=== PATIENT | female | born 1935 | race African-American/Black ===

== ENCOUNTER → 2016-04-21 | Outpatient (CLI) | payer MEDICARE, OTHER | LOC: OD 16:56 | PROVIDERS: ATTEND Internal Medicine | DX: J01.90 Acute sinusitis, unspecified (principal); R05 Cough; I48.0 Paroxysmal atrial fibrillation | CPT/HCPCS: 70220; 71020 ==

== ENCOUNTER 2016-06-29 00:54 | Inpatient (IN) | payer MEDICARE, OTHER ==
[2016-06-29 01:53] LABS: ABSOLUTE EOSINOPHILS # (AUTO) 0.1 10^3/uL (0.0-0.6); ABSOLUTE LYMPHOCYTES (AUTO) 0.8 10^3/uL (0.5-4.7); ABSOLUTE MONOCYTES (AUTO) 0.5 10^3/uL (0.1-1.4); ABSOLUTE NEUT (AUTO) 4.6 10^3/uL (1.7-8.2); BASOPHILS % (AUTO) 0.6 % (0-2); EOSINOPHILS % (AUTO) 1.3 % (0-6); HEMATOCRIT 38.9 % (36.0-47.0); HEMOGLOBIN 12.3 g/dL (12.0-15.5); LYMPHOCYTES % (AUTO) 13.9 % (13-45); MEAN CORPUSCULAR HEMOGLOBIN 23.9 pg (27.0-33.4); MEAN CORPUSCULAR HGB CONC 31.5 g/dL (32.0-36.0); MEAN CORPUSCULAR VOLUME 76 fl (80-97); MONOCYTES % (AUTO) 8.7 % (3-13); RED BLOOD COUNT 5.13 10^6/uL (3.72-5.28); RED CELL DISTRIBUTION WIDTH 15.4 % (11.5-14.0); SEGMENTED NEUTROPHILS % (AUTO) 75.5 % (42-78); WHITE BLOOD COUNT 6.1 10^3/uL (4.0-10.5)
[2016-06-29] MEDS ORDERED: NORMAL SALINE 1000 ML 1,000 ML IV ONE (01:55)
--- NOTE | 2016-06-29 01:56 | ER Document Report ---
ED Fever - General Chief Complaint: Altered Mental Status Stated Complaint: ALTERED MENTAL STATUS Notes: The patient is an 80-year-old female, past medical history hypertension, hyperlipidemia, a fib, presents with 2 days of disorientation and confusion, according to her daughters. The patient also had a fever up to 102 by EMS and was given 975 mg Tylenol prior to arrival. The patient is AAOx3 and denies chest pain, shortness of breath, nausea, vomiting, abdominal pain, burning with urination, flank pain, rash, diarrhea, rhinorrhea, headache, numbness, tingling , neck stiffness or weakness. TRAVEL OUTSIDE OF THE [place] IN LAST 30 DAYS: No - Related Data Allergies/Adverse Reactions: Penicillins Allergy (Verified 01/02/14 21:38) vancomycin [Vancomycin] Allergy (Verified 01/02/14 21:38) Past Medical History - General Information source: Patient - Social History Smoking Status: Unknown if Ever Smoked Frequency of alcohol use: None Drug Abuse: None Family History: Reviewed & Not Pertinent - Past Medical History Cardiac Medical History: Reports: Hx Congestive Heart Failure, Hx Hypertension Past Surgical History: Reports: Hx Orthopedic Surgery - Immunizations Immunizations up to date: Yes Hx Diphtheria, Pertussis, Tetanus Vaccination: Yes Hx Pneumococcal Vaccination: 03/07/09 Review of Systems - Review of Systems Notes: REVIEW OF SYSTEMS: CONSTITUTIONAL: +fevers, -chills EENT: -eye pain, -difficulty swallowing, -nasal congestion CARDIOVASCULAR:-chest pain, -syncope. RESPIRATORY: -cough, -SOB GASTROINTESTINAL: -abdominal pain, -nausea, -vomiting, -diarrhea GENITOURINARY: -dysuria, -hematuria MUSCULOSKELETAL: -back pain, -neck pain SKIN: -rash or skin lesions. HEMATOLOGIC: -easy bruising or bleeding. LYMPHATIC: -swollen, enlarged glands. NEUROLOGICAL: +altered mental status, -headache, -neurologic symptoms PSYCHIATRIC: -anxiety, -depression. ALL OTHER SYSTEMS REVIEWED AND NEGATIVE. Physical Exam - Vital signs Vitals: Temp 100.3 F 06/29/16 01:01 - Notes Notes: PHYSICAL EXAMINATION: GENERAL: Well-appearing, well-nourished and in no acute distress. HEAD: Atraumatic, normocephalic. EYES: Pupils equal round and reactive to light, extraocular movements intact, sclera anicteric, conjunctiva are normal. ENT: nares patent, oropharynx clear without exudates. Moist mucous membranes. NECK: Normal range of motion, supple without lymphadenopathy LUNGS: Breath sounds clear to auscultation bilaterally and equal. No wheezes rales or rhonchi. HEART: Irregular rhythm, normal rate ABDOMEN: Soft, nontender, normoactive bowel sounds. No guarding, no rebound. No masses appreciated. EXTREMITIES: Normal range of motion, no pitting or edema. No cyanosis. NEUROLOGICAL: Cranial nerves grossly intact. Normal speech. Normal sensory and motor exams. PSYCH: Normal mood, normal affect. SKIN: Warm, Dry, normal turgor, no rashes or lesions noted. Course - Re-evaluation Re-evalutation: Patient is AAO3 and is in no distress. Her labs, CXR and urine are unremarkable. Patient has absolutely no signs of bacterial meningitis. Patient 's daughter is a family physician and does not feel comfortable taking patient home due to the confusion and fever. With the disorientation and slight hypotension, we'll bring patient in for further evaluation and treatment. She appears dehydrated and will provide gentle fluid hydration. Spoke to Dr. Traore at 5:30 and he has accepted patient to telemetry observation. - Vital Signs Vital signs: Temp Pulse Resp BP Pulse Ox 100.3 F 16 101/58 L 96 06/29/16 01:37 06/29/16 03:31 06/29/16 03:31 06/29/16 03:31 - Laboratory Result Diagrams: 06/29/16 01:30 06/29/16 01:30 Laboratory results interpreted by me: 06/29/16 06/29/16 06/29/16 01:30 01:30 01:30 MCV 76 L MCH 23.9 L MCHC 31.5 L RDW 15.4 H Potassium 5.1 H BUN 29 H Creatinine 1.77 H Est GFR ( Amer) 33 L Est GFR (Non-Af Amer) 28 L Glucose 138 H AST 74 H ALT 87 H NT-Pro-B Natriuret Pep 3750 H Urine Ketones 06/29/16 03:44 MCV MCH MCHC RDW Potassium BUN Creatinine Est GFR ( Amer) Est GFR (Non-Af Amer) Glucose AST ALT NT-Pro-B Natriuret Pep Urine Ketones TRACE H - Diagnostic Test Radiology reviewed: Image reviewed, Reports reviewed Radiology results interpreted by me: CXR: NAD - EKG Interpretation by Me EKG shows normal: [place], Intervals, QRS Complexes, ST-T Waves Rate: Normal Rhythm: A.Fib Discharge - Discharge Clinical Impression: Dehydration Altered mental status Qualifiers: Altered mental status type: disorientation Qualified Code(s): R41.0 - Disorientation, unspecified Fever Qualifiers: Fever type: unspecified Qualified Code(s): R50.9 - Fever, unspecified Condition: Stable Disposition: ADMITTED OBSERVATION Admitting Provider: Madeline Unit Admitted: Telemetry Referrals: JULIAN TRAORE MD [Primary Care Provider] - Follow up as needed
[2016-06-29 02:08] LABS: ALANINE AMINOTRANSFERASE 87 U/L (9-52); ALBUMIN 3.8 g/dL (3.5-5.0); ALKALINE PHOSPHATASE 110 U/L (38-126); ANION GAP 14 (5-19); ASPARTATE AMINO TRANSFERASE 74 U/L (14-36); BILIRUBIN,DIRECT 0.4 mg/dL (0.0-0.4); BILIRUBIN,TOTAL 0.6 mg/dL (0.2-1.3); BLOOD UREA NITROGEN 29 mg/dL (7-20); CALCIUM 9.8 mg/dL (8.4-10.2); CARBON DIOXIDE 24 mmol/L (22-30); CHLORIDE 104 mmol/L (98-107); CREATINE KINASE 63 U/L (30-135); CREATININE RESULT 1.77 mg/dL (0.52-1.25); GLUCOSE 138 mg/dL (75-110); LIPASE 149.1 U/L (23-300); POTASSIUM 5.1 mmol/L (3.6-5.0); SODIUM 142.1 mmol/L (137-145); TOTAL PROTEIN 6.6 g/dL (6.3-8.2)
[2016-06-29 02:22] LABS: TROPONIN I < 0.012 ng/mL
[2016-06-29 02:46] LABS: VENOUS BLOOD BASE EXCESS -0.5 mmol/L; VENOUS BLOOD HCO3 24.4 mmol/L (20-32); VENOUS BLOOD PH 7.39 (7.30-7.42)
[2016-06-29 04:04] LABS: APPEARANCE,URINE CLEAR; BILIRUBIN,URINE NEGATIVE (NEGATIVE); GLUCOSE, URINE NEGATIVE (NEGATIVE); KETONES,URINE TRACE mg/dL (NEGATIVE); LEUKOCYTE ESTERASE,URINE NEGATIVE (NEGATIVE); NITRITE,URINE NEGATIVE (NEGATIVE); PROTEIN,URINE NEGATIVE (NEGATIVE); URINE SPECIFIC GRAVITY 1.024; UROBILINOGEN,URINE NEGATIVE mg/dL (<2.0)
[2016-06-29 08:52] LABS: URINE BARBITURATES SCREEN NEGATIVE; URINE METHADONE SCREEN NEGATIVE; URINE OPIATES LOW NEGATIVE; URINE PHENCYCLIDINE SCREEN NEGATIVE
[2016-06-29 09:09] LABS: THYROID STIMULATING HORMONE 4.38 uIU/mL (0.47-4.68)
--- NOTE | 2016-06-29 11:19 | EKG REPORT ---
SEVERITY:- ABNORMAL ECG - ATRIAL FIBRILLATION PAIRED VENTRICULAR PREMATURE COMPLEXES LAD, CONSIDER LAFB OR INFERIOR INFARCT CONSIDER ANTERIOR INFARCT : Confirmed by: Mehdi Olivares 29-Jun-2016 11:18:11
--- NOTE | 2016-06-29 12:11 | Physician Advisory Note ---
Physician Advisor ProgressNote .: Pursuant to the plan for [facility], I have reviewed the medical record for this patient. Physician Advisor Statement: Possible documentation opportunities if attending agrees: 1. "possible sepsis, present on admission w/T102, tachypnea, mild hypotension, borderline lactate level, ruled out/in" 2. "obesity with BMI 40.8" 3. Medical Necessity - Please document explicitly in this case if pt is not clinically stable enough by 06/30 to go home safely [____ not yet back to baseline, recurrent fevers, recurrent tachypnea, hypotension, cx starting to show evidence of acute infxn, new clinical issues developing, ...], & then may be appropriate to change to Inpt status. - See below, under "Status". 4. ? - "Acute Kidney Injury on Chronic Kidney Dz stage ___[?3-4], baseline Cr= ____" [? 1.2-1.4] 5. ? - "possible acute hepatitis" - or other possible etiology of newly elevated LFTs As always, if concerned about any unstable VS or abnormal labs, please comment on them - what bad things they might indicate, why they concern you - & note what doing about them. Please also document each day the potential clinical problems you are concerned could occur if pt not kept in hospital for tx at this time. (These points are faria - if present in each note, attending's status decision should be sufficiently supported.) Discussion: 80yo female w/ chronic co-morbidities including - presented AM to ED w/disorientation/confusion x 2 days, with T102 for EMS. (+) T 100.3 (after Tylenol), RR 16-21, BP 101/58, WBC 6.1, K 5.1, BUN 29, Cr 1.77 (baseline 1.2-1.4s per hospital records), BNP 3750 (baseline 660-770), AST 74 & ALT 87 (baseline 10s-20s). Lactate 1.8. BMI 40.8. CXR neg. U/A neg except trace ketones. ED dr documented she appeared dehydrated, gave 1L IVF bolus, checked ur cx & BC. Attending ordered I/Os, VS q4h, daily wts, f/u LFTs, A1C, serial cardiac enzymes. Status: AMS pts are typically appropriate for Outpt Obs status initially, while further w/u is done to determine whether they clear quickly & can go home, or continue to need ongoing hospital care & need adm. Pt arrived with mild tachypnea shortly after T102 that EMS tx'd with Tylenol, mild hypotension, lactate 1.8 - concerning for possible early sepsis of unknown source initially. ALthough WBC was WNL, her BNP & transaminases were tremendously increased compared to her baseline. Attending has ordered repeat LFTs 06/30 & frequent VS and will f/u on the cultures. This Medicare pt has not yet spent 1MN in hospital care, and current intensity of service appears relatively low Outpt Obs is appropriate status for now. If, on 06/30, attending finds & documents clear clinical reasons she needs ongoing hospital care/monitoring in inpatient hospital setting for a 2nd MN, which is medically reasonable & necessary to protect pt's health, safety, & medical condition, then she may become appropriate to change to Inpt status at that point. Thanks for your help with documentation accuracy/specificity improvement! Lily Goldman MD [facility] Physician Advisor, Fellow of Hospital Medicine
[2016-06-29] MEDS ORDERED: HEPARIN SOD (PORCINE) 5,000 UNIT/ML 1 ML SYRINGE SUBCUT SCH (14:00)
[2016-06-29 15:57] LABS: CREATINE KINASE MB 0.71 ng/mL (<4.55)
[2016-06-29 16:00] LABS: TROPONIN I < 0.012 ng/mL
[2016-06-29] MEDS ORDERED: ACETAMINOPHEN 650 MG SUPP.RECT PR ONE (18:52)
[2016-06-29 19:03] LABS: PROTHROMBIN TIME 12.9 SEC (11.4-15.4)
[2016-06-29 19:04] LABS: PARTIAL THROMBOPLASTIN TIME 30.4 SEC (23.5-35.8)
[2016-06-29] MEDS ORDERED: ACETAMINOPHEN 650 MG SUPP.RECT PR PRN (19:14)
[2016-06-29] MEDS ORDERED: (PENDING PHARMACY ID) (Donepezil Hcl [Aricept] 10 MG) PO SCH (19:15)
[2016-06-29] MEDS ORDERED: (PENDING PHARMACY ID) (Metoprolol Succinate [Toprol Xl 100 Mg Tablet] 50 MG) PO SCH (19:15)
--- NOTE | 2016-06-29 19:47 | PDOC H&P ---
History of Present Illness Admission Date/PCP: 06/29/16 07:44 JULIAN TRAORE MD History of Present Illness: CARLOTA COWAN is a 80 year old female with history of chronic atrial fibrillation, chronic kidney disease stage III, she was brought to emergency room by her daughter because she was said to have altered mental status. In the emergency room she was evaluated the temperature recorded was 100.3, the blood pressure recorded was 101/ 58, the chest x-ray was negative for pneumonia , urinalysis was negative, the hemogram was normal, the chemistry showed mild elevation in liver enzymes, the serum creatinine was 1.7, estimated GFR was 33 patient was to be discharged from the emergency room but the patient's daughter stated that she does not feel comfortable that the patient be discharged, I was called by the ER physician earlier this morning about the patient. The vital signs were stable there was no fever, when I saw her on the floor she was oriented to time place and person but on further evaluation she had episode of chills and temperature was checked and was 102. There is no source of infection at this point but she will be empirically be treated with IV antibiotic for possible RN PARALEGAL infection, fluoroscopic guided lumbar puncture will be ordered. Past Medical History Cardiac Medical History: Reports: Atrial Fibrillation, Hypertension, Other - Chronic diastolic dysfunction of the left ventricle Neurological Medical History: Reports: Other - Mild cognitive impairment Endocrine Medical History: Reports: Obesity Renal/ Medical History: Reports: Chronic Kidney Disease - Chronic kidney disease stage III Musculoskeltal Medical History: Reports: Arthritis Past Surgical History Past Surgical History: Reports: Orthopedic Surgery Social History Smoking Status: Former Smoker Frequency of Alcohol Use: None Hx Recreational Drug Use: No Hx Prescription Drug Abuse: No - Advance Directive Resuscitation Status: Full Code Family History Family History: Reviewed & Not Pertinent Parental Family History Reviewed: Yes Children Family History Reviewed: Yes Sibling(s) Family History Reviewed.: Yes Medication/Allergy Home Medications: Amiodarone HCl [Cordarone 200 mg Tablet] 200 mg PO DAILY 06/29/16 Apixaban [Eliquis 2.5 mg Tablet] 2.5 mg PO BID 06/29/16 Donepezil HCl [Aricept] 10 mg PO DAILY 06/29/16 Fesoterodine Fumarate [Toviaz] 8 mg PO DAILY 06/29/16 Furosemide [Lasix] 20 mg PO Q2D 06/29/16 Isosorbide Mononitrate [Imdur 30 mg Tablet.er] 30 mg PO DAILY 06/29/16 Levothyroxine Sodium [Synthroid] 50 mcg PO QAM 06/29/16 Melatonin/Pyridoxine [Melatonin 3 mg Tablet] 1 tab PO QHS 06/29/16 Memantine HCl [Namenda 10 mg Tablet] 10 mg PO BID 06/29/16 Metoprolol Succinate [Toprol XL 100 mg Tablet] 50 mg PO DAILY 06/29/16 Mirabegron [Myrbetriq] 50 mg PO DAILY 06/29/16 Montelukast Sodium [Singulair 10 mg Tablet] 10 mg PO QPM 06/29/16 Spironolactone [Aldactone 100 mg Tablet] 100 mg PO DAILY 06/29/16 Allergies/Adverse Reactions: Penicillins Allergy (Verified 01/02/14 21:38) vancomycin [Vancomycin] Allergy (Verified 01/02/14 21:38) Review of Systems Constitutional: PRESENT: fever(s) Cardiovascular: ABSENT: as per HPI, chest pain, dyspnea on exertion, edema, orthropnea, palpitations, other Respiratory: PRESENT: cough Gastrointestinal: PRESENT: other Neurological: PRESENT: confusion - Confusion by history Hematologic/Lymphatic: ABSENT: as per HPI, easy bleeding, easy bruising, lymphadenopathy, other Physical Exam Vital Signs: Temp Pulse Resp BP Pulse Ox 102 F H 69 21 H 205/87 H 97 06/29/16 18:46 06/29/16 13:22 06/29/16 14:20 06/29/16 14:20 06/29/16 14:20 Intake & Output 06/28/16 06/29/16 06/30/16 06:59 06:59 06:59 Intake Total 100 Balance 100 Weight 105 kg General appearance: PRESENT: no acute distress, obese Head exam: PRESENT: atraumatic, normocephalic Eye exam: PRESENT: PERRLA Neck exam: PRESENT: full ROM, other - Neck is supple Cardiovascular exam: PRESENT: RRR, +S1, +S2 GI/Abdominal exam: PRESENT: normal bowel sounds, soft Rectal exam: PRESENT: deferred Neurological exam: PRESENT: alert, oriented to time, CN II-XII grossly intact Skin exam: PRESENT: dry, intact, warm Results Laboratory Results: 04/25/17 15:07 CK-MB (CK-2) 0.71 Troponin I < 0.012 Impressions: Head MRI 06/29/16 00:00 IMPRESSION: No acute findings. Extensive white matter disease. Chest X-Ray 06/29/16 01:01 IMPRESSION: No acute cardiopulmonary findings. Assessment & Plan - Diagnosis (1) Fever Qualifiers: Fever type: unspecified Qualified Code(s): R50.9 - Fever, unspecified Is this a current diagnosis for this admission?: YesPlan: She has fever with temperature 102, the etiology of the fever is not clear, there is no source of infection that is apparent at this time, family stated that she was altered, I did not see that she was oriented to time place and person when I evaluated her, she will empirically be treated with IV antibiotic aztreonam, Zyvox and acyclovir to cover potential pathogens for RN PARALEGAL infection and we will arrange for fluoroscopy guided spinal tap she has drug allergy to penicillin, vancomycin.
[2016-06-29 19:54] LABS: ABSOLUTE LYMPHOCYTES (AUTO) 0.5 10^3/uL (0.5-4.7); ABSOLUTE MONOCYTES (AUTO) 0.4 10^3/uL (0.1-1.4); ABSOLUTE NEUT (AUTO) 4.2 10^3/uL (1.7-8.2); BASOPHILS % (AUTO) 0.5 % (0-2); EOSINOPHILS % (AUTO) 0.9 % (0-6); HEMATOCRIT 35.3 % (36.0-47.0); HEMOGLOBIN 11.2 g/dL (12.0-15.5); HGB HCT DIFFERENCE -1.7; MEAN CORPUSCULAR HEMOGLOBIN 23.8 pg (27.0-33.4); MEAN CORPUSCULAR HGB CONC 31.6 g/dL (32.0-36.0); MEAN CORPUSCULAR VOLUME 76 fl (80-97); MONOCYTES % (AUTO) 7.4 % (3-13); RED BLOOD COUNT 4.68 10^6/uL (3.72-5.28); RED CELL DISTRIBUTION WIDTH 15.7 % (11.5-14.0); SEGMENTED NEUTROPHILS % (AUTO) 81.2 % (42-78); WHITE BLOOD COUNT 5.2 10^3/uL (4.0-10.5)
[2016-06-29] MEDS ORDERED: (PENDING PHARMACY ID) (Fesoterodine Fumarate [Toviaz] 8 MG) PO SCH (20:00)
[2016-06-29 20:09] LABS: ALANINE AMINOTRANSFERASE 90 U/L (9-52); ALBUMIN 3.4 g/dL (3.5-5.0); ALKALINE PHOSPHATASE 109 U/L (38-126); ANION GAP 12 (5-19); ASPARTATE AMINO TRANSFERASE 77 U/L (14-36); BILIRUBIN,DIRECT 0.4 mg/dL (0.0-0.4); BILIRUBIN,TOTAL 0.6 mg/dL (0.2-1.3); BLOOD UREA NITROGEN 25 mg/dL (7-20); CALCIUM 8.8 mg/dL (8.4-10.2); CARBON DIOXIDE 24 mmol/L (22-30); CHLORIDE 102 mmol/L (98-107); CREATININE RESULT 1.71 mg/dL (0.52-1.25); GLUCOSE 125 mg/dL (75-110); POTASSIUM 4.9 mmol/L (3.6-5.0); TOTAL PROTEIN 6.1 g/dL (6.3-8.2)
[2016-06-29 20:21] LABS: CREATINE KINASE MB 0.41 ng/mL (<4.55)
[2016-06-29 20:25] LABS: TROPONIN I < 0.012 ng/mL
[2016-06-29] MEDS: LINEZOLID 300 ML IV SCH (20:53)
[2016-06-29] MEDS ORDERED: PYRIDOXINE PO SCH (22:00)
[2016-06-29] MEDS ORDERED: MELATONIN PO SCH (22:00)
[2016-06-29] MEDS: APIXABAN 2.5 MG TABLET PO SCH (23:50)
[2016-06-29] MEDS: ACYCLOVIR SODIUM 750 MG in NORMAL SALINE 250 ML IV SCH (23:51)
[2016-06-29] MEDS: AZTREONAM 1 GM in DEXTROSE 5%-WATER 50 ML IV SCH (23:51)
[2016-06-30] MEDS ORDERED: AZTREONAM 1 GM in DEXTROSE 5%-WATER 50 ML IV SCH ×2
[2016-06-30 02:12] LABS: ALANINE AMINOTRANSFERASE 82 U/L (9-52); ALBUMIN 2.8 g/dL (3.5-5.0); ALKALINE PHOSPHATASE 88 U/L (38-126); ASPARTATE AMINO TRANSFERASE 61 U/L (14-36); BILIRUBIN,DIRECT 0.4 mg/dL (0.0-0.4); BILIRUBIN,TOTAL 0.6 mg/dL (0.2-1.3); TOTAL PROTEIN 5.3 g/dL (6.3-8.2)
[2016-06-30 02:23] LABS: CREATINE KINASE MB 0.65 ng/mL (<4.55); TROPONIN I 0.014 ng/mL
[2016-06-30] MEDS: ACYCLOVIR SODIUM 750 MG in NORMAL SALINE 250 ML IV SCH (05:11)
[2016-06-30] MEDS: LEVOTHYROXINE SODIUM 0.05 MG TABLET PO SCH (08:34)
[2016-06-30] MEDS: AZTREONAM 1 GM in DEXTROSE 5%-WATER 50 ML IV SCH ×2 (09:34→16:13)
[2016-06-30] MEDS: METOPROLOL SUCCINATE 50 MG TAB.SR.24H PO SCH (09:43)
[2016-06-30] MEDS: ISOSORBIDE MONONITRATE 30 MG TAB.ER.24H PO SCH (09:43)
[2016-06-30] MEDS: AMIODARONE HCL 200 MG TABLET PO SCH (09:43)
[2016-06-30] MEDS: DONEPEZIL HCL 5 MG TABLET PO SCH (09:44)
[2016-06-30] MEDS: APIXABAN 2.5 MG TABLET PO SCH ×2 (09:47→21:46)
[2016-06-30] MEDS: LINEZOLID 300 ML IV SCH (11:11)
[2016-06-30 14:43] LABS: ABSOLUTE EOSINOPHILS # (AUTO) 0.1 10^3/uL (0.0-0.6); ABSOLUTE LYMPHOCYTES (AUTO) 0.8 10^3/uL (0.5-4.7); ABSOLUTE MONOCYTES (AUTO) 0.7 10^3/uL (0.1-1.4); ABSOLUTE NEUT (AUTO) 4.2 10^3/uL (1.7-8.2); BASOPHILS % (AUTO) 0.4 % (0-2); EOSINOPHILS % (AUTO) 1.9 % (0-6); HEMATOCRIT 35.6 % (36.0-47.0); HEMOGLOBIN 11.1 g/dL (12.0-15.5); HGB HCT DIFFERENCE -2.3; LYMPHOCYTES % (AUTO) 13.9 % (13-45); MEAN CORPUSCULAR HEMOGLOBIN 23.6 pg (27.0-33.4); MEAN CORPUSCULAR HGB CONC 31.1 g/dL (32.0-36.0); MEAN CORPUSCULAR VOLUME 76 fl (80-97); MONOCYTES % (AUTO) 11.2 % (3-13); RED BLOOD COUNT 4.68 10^6/uL (3.72-5.28); RED CELL DISTRIBUTION WIDTH 15.8 % (11.5-14.0); SEGMENTED NEUTROPHILS % (AUTO) 72.6 % (42-78); WHITE BLOOD COUNT 5.8 10^3/uL (4.0-10.5)
[2016-06-30 15:02] LABS: ALANINE AMINOTRANSFERASE 84 U/L (9-52); ALBUMIN 3.1 g/dL (3.5-5.0); ALKALINE PHOSPHATASE 100 U/L (38-126); ANION GAP 13 (5-19); ASPARTATE AMINO TRANSFERASE 67 U/L (14-36); BILIRUBIN,DIRECT 0.4 mg/dL (0.0-0.4); BILIRUBIN,TOTAL 0.6 mg/dL (0.2-1.3); BLOOD UREA NITROGEN 23 mg/dL (7-20); CALCIUM 8.6 mg/dL (8.4-10.2); CARBON DIOXIDE 25 mmol/L (22-30); CHLORIDE 100 mmol/L (98-107); CREATININE RESULT 1.51 mg/dL (0.52-1.25); GLUCOSE 105 mg/dL (75-110); POTASSIUM 4.5 mmol/L (3.6-5.0); SODIUM 138.3 mmol/L (137-145)
--- NOTE | 2016-06-30 16:42 | PDOC PROGRESS REPORT ---
Subjective Progress Note for:: 06/30/16 Subjective:: She was seen by the bedside, she has a history of lymphedema of the lower extremities, when she was admitted yesterday that was redness of the lower extremities but I thought it was part of her lymphedema, she was started empirically on IV antibiotic yesterday because of concern that she may have CYBER INCIDENT ANALYST infection, please she has been on the antibiotic the redness of the leg has improved and she has no more fever she is also more coherent and more responsive this suggests that she probably have metabolic encephalopathy due to cellulitis of the lower extremities. So there is no need for lumbar puncture, this to be canceled, patient daughter a physician , is in agreement with this plan of care. She was admitted initially for observation and care will be transitioned to inpatient care and the antibiotic be changed to IV clindamycin for the next 2 days Physical Exam Vital Signs: Temp Pulse Resp BP Pulse Ox 98.6 F 70 20 104/56 L 100 06/30/16 11:31 06/30/16 11:31 06/30/16 11:31 06/30/16 11:31 06/30/16 11:31 General appearance: PRESENT: no acute distress Eye exam: PRESENT: PERRLA Respiratory exam: PRESENT: clear to auscultation roxy Cardiovascular exam: PRESENT: +S1, +S2 GI/Abdominal exam: PRESENT: soft Extremities exam: PRESENT: other - Redness of the lower extremities Results Laboratory Results: 06/30/16 14:31 06/30/16 14:31 06/30/16 06/30/16 14:31 14:31 WBC 5.8 RBC 4.68 Hgb 11.1 L Hct 35.6 L MCV 76 L MCH 23.6 L MCHC 31.1 L RDW 15.8 H Plt Count 147 L Seg Neutrophils % 72.6 Lymphocytes % 13.9 Monocytes % 11.2 Eosinophils % 1.9 Basophils % 0.4 Absolute Neutrophils 4.2 Absolute Lymphocytes 0.8 Absolute Monocytes 0.7 Absolute Eosinophils 0.1 Absolute Basophils 0.0 Sodium 138.3 Potassium 4.5 Chloride 100 Carbon Dioxide 25 Anion Gap 13 BUN 23 H Creatinine 1.51 H Est GFR ( Amer) 40 L Est GFR (Non-Af Amer) 33 L Glucose 105 Calcium 8.6 Total Bilirubin 0.6 AST 67 H ALT 84 H Alkaline Phosphatase 100 Total Protein 6.0 L Albumin 3.1 L Impressions: Head MRI 06/29/16 00:00 IMPRESSION: No acute findings. Extensive white matter disease. Chest X-Ray 06/29/16 01:01 IMPRESSION: No acute cardiopulmonary findings. Assessment & Plan - Diagnosis (1) Cellulitis of right lower extremity Is this a current diagnosis for this admission?: YesPlan: The IV Zyvox and aztreonam will be discontinued and she will be started on IV clindamycin (2) Fever Qualifiers: Fever type: unspecified Qualified Code(s): R50.9 - Fever, unspecified Is this a current diagnosis for this admission?: Yes (3) Chronic kidney disease, stage III (moderate) Is this a current diagnosis for this admission?: Yes (4) Obesity Qualifiers: Obesity type: due to excess calories Obesity severity: unspecified obesity severity Qualified Code(s): E66.09 - Other obesity due to excess calories Is this a current diagnosis for this admission?: Yes (5) Chronic diastolic heart failure Is this a current diagnosis for this admission?: Yes
[2016-06-30] MEDS ORDERED: (PENDING PHARMACY ID) (Mirabegron [Myrbetriq] 50 MG) PO SCH (16:45)
[2016-06-30] MEDS: CLINDAMYCIN 600 MG/D5W RTU 600 MG/50 ML RTUPB IV SCH (18:25)
[2016-06-30] MEDS: MEMANTINE HCL 10 MG TABLET PO SCH (18:25)
[2016-07-01] MEDS: CLINDAMYCIN 600 MG/D5W RTU 600 MG/50 ML RTUPB IV SCH ×3 (02:24→17:46)
[2016-07-01 05:58] LABS: ABSOLUTE EOSINOPHILS # (AUTO) 0.2 10^3/uL (0.0-0.6); ABSOLUTE LYMPHOCYTES (AUTO) 1.2 10^3/uL (0.5-4.7); ABSOLUTE MONOCYTES (AUTO) 0.4 10^3/uL (0.1-1.4); ABSOLUTE NEUT (AUTO) 3.1 10^3/uL (1.7-8.2); BASOPHILS % (AUTO) 0.7 % (0-2); EOSINOPHILS % (AUTO) 3.2 % (0-6); HEMATOCRIT 34.1 % (36.0-47.0); HEMOGLOBIN 10.8 g/dL (12.0-15.5); HGB HCT DIFFERENCE -1.7; MEAN CORPUSCULAR HEMOGLOBIN 23.8 pg (27.0-33.4); MEAN CORPUSCULAR HGB CONC 31.6 g/dL (32.0-36.0); MEAN CORPUSCULAR VOLUME 75 fl (80-97); MONOCYTES % (AUTO) 8.1 % (3-13); RED BLOOD COUNT 4.54 10^6/uL (3.72-5.28); RED CELL DISTRIBUTION WIDTH 15.5 % (11.5-14.0); WHITE BLOOD COUNT 4.8 10^3/uL (4.0-10.5)
[2016-07-01 06:15] LABS: ALANINE AMINOTRANSFERASE 78 U/L (9-52); ALKALINE PHOSPHATASE 93 U/L (38-126); ANION GAP 10 (5-19); ASPARTATE AMINO TRANSFERASE 57 U/L (14-36); BILIRUBIN,DIRECT 0.3 mg/dL (0.0-0.4); BILIRUBIN,TOTAL 0.5 mg/dL (0.2-1.3); BLOOD UREA NITROGEN 20 mg/dL (7-20); CALCIUM 8.4 mg/dL (8.4-10.2); CARBON DIOXIDE 26 mmol/L (22-30); CHLORIDE 103 mmol/L (98-107); CREATININE RESULT 1.47 mg/dL (0.52-1.25); GLUCOSE 80 mg/dL (75-110); POTASSIUM 4.4 mmol/L (3.6-5.0); SODIUM 139.3 mmol/L (137-145); TOTAL PROTEIN 5.9 g/dL (6.3-8.2)
[2016-07-01] MEDS: LEVOTHYROXINE SODIUM 0.05 MG TABLET PO SCH (08:52)
[2016-07-01] MEDS: MEMANTINE HCL 10 MG TABLET PO SCH ×2 (09:43→17:47)
[2016-07-01] MEDS: METOPROLOL SUCCINATE 50 MG TAB.SR.24H PO SCH (09:43)
[2016-07-01] MEDS: AMIODARONE HCL 200 MG TABLET PO SCH (09:44)
[2016-07-01] MEDS: ISOSORBIDE MONONITRATE 30 MG TAB.ER.24H PO SCH (09:44)
[2016-07-01] MEDS: DONEPEZIL HCL 5 MG TABLET PO SCH (09:44)
[2016-07-01] MEDS: APIXABAN 2.5 MG TABLET PO SCH ×2 (09:45→21:27)
--- NOTE | 2016-07-01 13:37 | Physician Advisory Note ---
Physician Advisor ProgressNote .: Pursuant to the plan for [facility], I have reviewed the medical record for this patient. Physician Advisor Statement: Beautiful note 06/30 explaining medical necessity & clinical reasoning for the day!! Possible documentation opportunities if attending agrees: 1. "possible early sepsis, present on admission w/T102, associated acute metab encephalopathy, tachypnea, mild hypotension, & borderline lactate level, ruled in/ out". 2. Medical Necessity: Has her mental status returned to baseline, or not yet? (Please mention this each day 'til it's baseline.) - Similarly, please mention each day what about the infxn is not yet sufficiently improved for d/c. 3. ? - "Acute Kidney Injury, baseline Cr= ____" [? 1.2-1.4] 4. possible etiology of newly elevated LFTs As always, if concerned about any unstable VS or abnormal labs, please comment on them - what bad things they might indicate, why they concern you - & note what doing about them. Please also document each day the potential clinical problems you are concerned could occur if pt not kept in hospital for tx at this time. (These points are faria - if present in each note, attending's status decision should be sufficiently supported.) Thanks for your help with documentation accuracy/specificity improvement! Lily Goldman MD [facility] Physician Advisor, Fellow of [facility]
--- NOTE | 2016-07-01 20:54 | PDOC PROGRESS REPORT ---
Subjective Progress Note for:: 07/01/16 Subjective:: Patient was seen by the bedside, presently on IV clindamycin, there is improvement in the cellulitis of the lower extremities. Family wants patient to go for rehabilitation. She has 2 daughters, one lives in [place] the other one lives in [place], and they are looking at nursing facility in [place] Physical Exam Vital Signs: Temp Pulse Resp BP Pulse Ox 97.6 F 66 20 122/59 L 99 07/01/16 15:44 07/01/16 15:44 07/01/16 15:44 07/01/16 15:44 07/01/16 15:44 Intake & Output 06/30/16 07/01/16 07/02/16 06:59 06:59 06:59 Intake Total 1160 695 Balance 1160 695 Weight 103.9 kg General appearance: PRESENT: no acute distress, well-developed, well-nourished Head exam: PRESENT: atraumatic, normocephalic Eye exam: PRESENT: conjunctiva pink, EOMI, PERRLA Ear exam: PRESENT: normal external ear exam Mouth exam: PRESENT: moist, tongue midline Neck exam: PRESENT: full ROM Respiratory exam: PRESENT: clear to auscultation roxy Cardiovascular exam: PRESENT: RRR, +S1, +S2 Vascular exam: PRESENT: normal capillary refill GI/Abdominal exam: PRESENT: normal bowel sounds, soft Rectal exam: PRESENT: deferred Neurological exam: PRESENT: alert, awake, oriented to person, oriented to place , oriented to time, oriented to situation, CN II-XII grossly intact. ABSENT: motor sensory deficit Psychiatric exam: PRESENT: appropriate affect, normal mood. ABSENT: homicidal ideation, suicidal ideation Skin exam: PRESENT: dry, intact, warm. ABSENT: cyanosis, rash Results Laboratory Results: 07/01/16 05:35 07/01/16 05:35 07/01/16 07/01/16 05:35 05:35 WBC 4.8 RBC 4.54 Hgb 10.8 L Hct 34.1 L MCV 75 L MCH 23.8 L MCHC 31.6 L RDW 15.5 H Plt Count 148 L Seg Neutrophils % 64.0 Lymphocytes % 24.0 Monocytes % 8.1 Eosinophils % 3.2 Basophils % 0.7 Absolute Neutrophils 3.1 Absolute Lymphocytes 1.2 Absolute Monocytes 0.4 Absolute Eosinophils 0.2 Absolute Basophils 0.0 Sodium 139.3 Potassium 4.4 Chloride 103 Carbon Dioxide 26 Anion Gap 10 BUN 20 Creatinine 1.47 H Est GFR ( Amer) 41 L Est GFR (Non-Af Amer) 34 L Glucose 80 Calcium 8.4 Total Bilirubin 0.5 AST 57 H ALT 78 H Alkaline Phosphatase 93 Total Protein 5.9 L Albumin 3.0 L Impressions: Head MRI 06/29/16 00:00 IMPRESSION: No acute findings. Extensive white matter disease. Chest X-Ray 06/29/16 01:01 IMPRESSION: No acute cardiopulmonary findings. Assessment & Plan - Diagnosis (1) Cellulitis of right lower extremity Is this a current diagnosis for this admission?: YesPlan: She will continue IV antibiotic, clindamycin (2) Fever Qualifiers: Fever type: unspecified Qualified Code(s): R50.9 - Fever, unspecified Is this a current diagnosis for this admission?: Yes (3) Chronic kidney disease, stage III (moderate) Is this a current diagnosis for this admission?: Yes (4) Obesity Qualifiers: Obesity type: due to excess calories Obesity severity: unspecified obesity severity Qualified Code(s): E66.09 - Other obesity due to excess calories Is this a current diagnosis for this admission?: Yes (5) Chronic diastolic heart failure Is this a current diagnosis for this admission?: Yes
[2016-07-02] MEDS: CLINDAMYCIN 600 MG/D5W RTU 600 MG/50 ML RTUPB IV SCH ×3 (02:15→17:25)
[2016-07-02 05:30] LABS: ABSOLUTE BASOPHILS # (AUTO) 0.1 10^3/uL (0.0-0.2); ABSOLUTE EOSINOPHILS # (AUTO) 0.1 10^3/uL (0.0-0.6); ABSOLUTE LYMPHOCYTES (AUTO) 1.2 10^3/uL (0.5-4.7); ABSOLUTE MONOCYTES (AUTO) 0.4 10^3/uL (0.1-1.4); ABSOLUTE NEUT (AUTO) 2.9 10^3/uL (1.7-8.2); BASOPHILS % (AUTO) 1.3 % (0-2); EOSINOPHILS % (AUTO) 2.6 % (0-6); HEMATOCRIT 33.1 % (36.0-47.0); HEMOGLOBIN 10.4 g/dL (12.0-15.5); HGB HCT DIFFERENCE -1.9; LYMPHOCYTES % (AUTO) 26.3 % (13-45); MEAN CORPUSCULAR HEMOGLOBIN 23.6 pg (27.0-33.4); MEAN CORPUSCULAR HGB CONC 31.5 g/dL (32.0-36.0); MEAN CORPUSCULAR VOLUME 75 fl (80-97); MONOCYTES % (AUTO) 8.1 % (3-13); RED CELL DISTRIBUTION WIDTH 15.4 % (11.5-14.0); SEGMENTED NEUTROPHILS % (AUTO) 61.7 % (42-78); WHITE BLOOD COUNT 4.6 10^3/uL (4.0-10.5)
[2016-07-02 05:51] LABS: ALANINE AMINOTRANSFERASE 83 U/L (9-52); ALBUMIN 2.8 g/dL (3.5-5.0); ALKALINE PHOSPHATASE 108 U/L (38-126); ANION GAP 10 (5-19); ASPARTATE AMINO TRANSFERASE 63 U/L (14-36); BILIRUBIN,DIRECT 0.2 mg/dL (0.0-0.4); BILIRUBIN,TOTAL 0.4 mg/dL (0.2-1.3); BLOOD UREA NITROGEN 28 mg/dL (7-20); CALCIUM 8.2 mg/dL (8.4-10.2); CARBON DIOXIDE 25 mmol/L (22-30); CHLORIDE 103 mmol/L (98-107); CREATININE RESULT 1.63 mg/dL (0.52-1.25); GLUCOSE 86 mg/dL (75-110); POTASSIUM 4.8 mmol/L (3.6-5.0); SODIUM 137.7 mmol/L (137-145); TOTAL PROTEIN 5.3 g/dL (6.3-8.2)
[2016-07-02] MEDS: LEVOTHYROXINE SODIUM 0.05 MG TABLET PO SCH (08:32)
[2016-07-02] MEDS ORDERED: RIFAMPIN 300 MG CAPSULE PO SCH (10:00)
[2016-07-02] MEDS: ISOSORBIDE MONONITRATE 30 MG TAB.ER.24H PO SCH (10:46)
[2016-07-02] MEDS: METOPROLOL SUCCINATE 50 MG TAB.SR.24H PO SCH (10:46)
[2016-07-02] MEDS: MEMANTINE HCL 10 MG TABLET PO SCH ×2 (10:46→17:19)
[2016-07-02] MEDS: AMIODARONE HCL 200 MG TABLET PO SCH (10:46)
[2016-07-02] MEDS: DONEPEZIL HCL 5 MG TABLET PO SCH (10:46)
[2016-07-02] MEDS: APIXABAN 2.5 MG TABLET PO SCH ×2 (10:48→21:09)
--- NOTE | 2016-07-02 18:35 | PDOC PROGRESS REPORT ---
Subjective Progress Note for:: 07/02/16 Subjective:: Patient was seen by the bedside, she feels better the plan is to discharge to [facility] tomorrow in [place] because daughter lives in [facility] and they want her transferred to a [facility] that is close by Physical Exam Vital Signs: Temp Pulse Resp BP Pulse Ox 98.4 F 68 16 103/57 L 98 07/02/16 15:02 07/02/16 15:02 07/02/16 15:02 07/02/16 15:02 07/02/16 15:02 Intake & Output 07/01/16 07/02/16 07/03/16 06:59 06:59 06:59 Intake Total 1160 895 979 Balance 1160 895 979 Weight 103.9 kg 109 kg General appearance: PRESENT: no acute distress, well-developed, well-nourished Head exam: PRESENT: atraumatic, normocephalic Eye exam: PRESENT: conjunctiva pink, EOMI, PERRLA Ear exam: PRESENT: normal external ear exam Mouth exam: PRESENT: moist, tongue midline Neck exam: PRESENT: full ROM Respiratory exam: PRESENT: clear to auscultation roxy Cardiovascular exam: PRESENT: RRR, +S1, +S2 Vascular exam: PRESENT: normal capillary refill GI/Abdominal exam: PRESENT: normal bowel sounds, soft Rectal exam: PRESENT: deferred Neurological exam: PRESENT: alert, awake, oriented to person, oriented to place , oriented to time, oriented to situation, CN II-XII grossly intact Psychiatric exam: PRESENT: appropriate affect, normal mood Skin exam: PRESENT: dry, intact, warm Results Laboratory Results: 07/02/16 04:47 07/02/16 04:47 07/02/16 07/02/16 04:47 04:47 WBC 4.6 RBC 4.40 Hgb 10.4 L Hct 33.1 L MCV 75 L MCH 23.6 L MCHC 31.5 L RDW 15.4 H Plt Count 163 Seg Neutrophils % 61.7 Lymphocytes % 26.3 Monocytes % 8.1 Eosinophils % 2.6 Basophils % 1.3 Absolute Neutrophils 2.9 Absolute Lymphocytes 1.2 Absolute Monocytes 0.4 Absolute Eosinophils 0.1 Absolute Basophils 0.1 Sodium 137.7 Potassium 4.8 Chloride 103 Carbon Dioxide 25 Anion Gap 10 BUN 28 H Creatinine 1.63 H Est GFR ( Amer) 37 L Est GFR (Non-Af Amer) 30 L Glucose 86 Calcium 8.2 L Total Bilirubin 0.4 AST 63 H ALT 83 H Alkaline Phosphatase 108 Total Protein 5.3 L Albumin 2.8 L Impressions: Head MRI 06/29/16 00:00 IMPRESSION: No acute findings. Extensive white matter disease. Chest X-Ray 06/29/16 01:01 IMPRESSION: No acute cardiopulmonary findings. Assessment & Plan - Diagnosis (1) Cellulitis of right lower extremity Is this a current diagnosis for this admission?: Yes (2) Fever Qualifiers: Fever type: unspecified Qualified Code(s): R50.9 - Fever, unspecified Is this a current diagnosis for this admission?: Yes (3) Chronic kidney disease, stage III (moderate) Is this a current diagnosis for this admission?: Yes (4) Obesity Qualifiers: Obesity type: due to excess calories Obesity severity: unspecified obesity severity Qualified Code(s): E66.09 - Other obesity due to excess calories Is this a current diagnosis for this admission?: Yes (5) Chronic diastolic heart failure Is this a current diagnosis for this admission?: Yes (6) Elevated liver enzymes Is this a current diagnosis for this admission?: YesPlan: Elevated liver enzymes probably due to fatty liver
--- NOTE | 2016-07-02 18:48 | PDOC TRANSFER SUMMARY ---
General - Admit/Disc Date/PCP Admission Date/Primary Care Provider: 06/30/16 13:52 JULIAN TRAORE MD Discharge Date: 07/03/16 - Discharge Diagnosis (1) Cellulitis of right lower extremity Is this a current diagnosis for this admission?: Yes (2) Fever Is this a current diagnosis for this admission?: Yes (3) Chronic kidney disease, stage III (moderate) Is this a current diagnosis for this admission?: Yes (4) Obesity Is this a current diagnosis for this admission?: Yes (5) Chronic diastolic heart failure Is this a current diagnosis for this admission?: Yes (6) Elevated liver enzymes Is this a current diagnosis for this admission?: Yes (7) Urinary incontinence Is this a current diagnosis for this admission?: Yes (8) Obstructive sleep apnea Is this a current diagnosis for this admission?: YesSummary: Patient should be allowed to use her CPAP device the default setting is the recommended setting for the patient (9) Mild cognitive impairment with memory loss Is this a current diagnosis for this admission?: Yes (10) Chronic atrial fibrillation Is this a current diagnosis for this admission?: Yes - Additional Information Resuscitation Status: Full Code Home Medications: Amiodarone HCl [Cordarone 200 mg Tablet] 200 mg PO DAILY 06/29/16 Apixaban [Eliquis 2.5 mg Tablet] 2.5 mg PO BID 06/29/16 Donepezil HCl [Aricept] 10 mg PO DAILY 06/29/16 Fesoterodine Fumarate [Toviaz] 8 mg PO DAILY 06/29/16 Furosemide [Lasix] 20 mg PO Q2D 06/29/16 Isosorbide Mononitrate [Imdur 30 mg Tablet.er] 30 mg PO DAILY 06/29/16 Levothyroxine Sodium [Synthroid] 50 mcg PO QAM 06/29/16 Melatonin/Pyridoxine [Melatonin 3 mg Tablet] 1 tab PO QHS 06/29/16 Memantine HCl [Namenda 10 mg Tablet] 10 mg PO BID 06/29/16 Metoprolol Succinate [Toprol XL 100 mg Tablet] 50 mg PO DAILY 06/29/16 Mirabegron [Myrbetriq] 50 mg PO DAILY 06/29/16 Montelukast Sodium [Singulair 10 mg Tablet] 10 mg PO QPM 06/29/16 Clindamycin HCl [Cleocin 300 mg Capsule] 300 mg PO Q8H #15 capsule 07/02/16 History of Present Illness Admission Date/PCP: 06/30/16 13:52 JULIAN TRAORE MD History of Present Illness: CARLOTA COWAN is a 80 year old female with history of chronic atrial fibrillation, chronic kidney disease stage III, she was brought to emergency room by her daughter because she was said to have altered mental status. In the emergency room she was evaluated the temperature recorded was 100.3, the blood pressure recorded was 101/ 58, the chest x-ray was negative for pneumonia , urinalysis was negative, the hemogram was normal, the chemistry showed mild elevation in liver enzymes, the serum creatinine was 1.7, estimated GFR was 33 patient was to be discharged from the emergency room but the patient's daughter stated that she does not feel comfortable that the patient be discharged, I was called by the ER physician earlier this morning about the patient. The vital signs were stable there was no fever, when I saw her on the floor she was oriented to time place and person but on further evaluation she had episode of chills and temperature was checked and was 102. There is no source of infection at this point but she will be empirically be treated with IV antibiotic for possible BLEACHER PULP infection, fluoroscopic guided lumbar puncture will be ordered. Hospital Course Hospital Course: Patient was admitted because of fever initially the etiology of the fever was not apparent but ultimately it was found to be cellulitis of the right lower extremity, she was initially empirically treated with intravenous aztreonam and Zyvox because of concern for BLEACHER PULP infection. She presented with fever associated with altered mental status ,the IV Zyvox and aztreonam was discontinued and this was substituted with IV clindamycin 600 mg IV every 8 hours she responded very well to treatment. The plan is to discharge patient to rehabilitation patient's family/daughter preferred that patient be discharged to a [facility] facility in [facility]. She has obstructive sleep apnea and patient should be allowed to use her CPAP machine, the CPAP machine have recommended setting in default . Physical Exam Vital Signs: Temp Pulse Resp BP Pulse Ox 98.4 F 68 16 103/57 L 98 07/02/16 15:02 07/02/16 15:02 07/02/16 15:02 07/02/16 15:02 07/02/16 15:02 Intake & Output 07/01/16 07/02/16 07/03/16 06:59 06:59 06:59 Intake Total 1160 895 979 Balance 1160 895 979 Weight 103.9 kg 109 kg General appearance: PRESENT: no acute distress, well-developed, well-nourished Head exam: PRESENT: atraumatic, normocephalic Eye exam: PRESENT: conjunctiva pink, EOMI, PERRLA Ear exam: PRESENT: normal external ear exam Respiratory exam: PRESENT: clear to auscultation roxy Cardiovascular exam: PRESENT: RRR, +S1, +S2 GI/Abdominal exam: PRESENT: normal bowel sounds, soft Rectal exam: PRESENT: deferred Extremities exam: PRESENT: full ROM Neurological exam: PRESENT: alert, awake, oriented to person, oriented to place , oriented to time, oriented to situation, CN II-XII grossly intact Psychiatric exam: PRESENT: appropriate affect, normal mood Skin exam: PRESENT: dry, intact, warm Results Laboratory Results: 07/02/16 04:47 07/02/16 04:47 07/02/16 07/02/16 04:47 04:47 WBC 4.6 RBC 4.40 Hgb 10.4 L Hct 33.1 L MCV 75 L MCH 23.6 L MCHC 31.5 L RDW 15.4 H Plt Count 163 Seg Neutrophils % 61.7 Lymphocytes % 26.3 Monocytes % 8.1 Eosinophils % 2.6 Basophils % 1.3 Absolute Neutrophils 2.9 Absolute Lymphocytes 1.2 Absolute Monocytes 0.4 Absolute Eosinophils 0.1 Absolute Basophils 0.1 Sodium 137.7 Potassium 4.8 Chloride 103 Carbon Dioxide 25 Anion Gap 10 BUN 28 H Creatinine 1.63 H Est GFR ( Amer) 37 L Est GFR (Non-Af Amer) 30 L Glucose 86 Calcium 8.2 L Total Bilirubin 0.4 AST 63 H ALT 83 H Alkaline Phosphatase 108 Total Protein 5.3 L Albumin 2.8 L Impressions: Head MRI 06/29/16 00:00 IMPRESSION: No acute findings. Extensive white matter disease. Chest X-Ray 06/29/16 01:01 IMPRESSION: No acute cardiopulmonary findings.
[2016-07-03] MEDS: CLINDAMYCIN 600 MG/D5W RTU 600 MG/50 ML RTUPB IV SCH ×2 (01:56→10:24)
[2016-07-03] MEDS ORDERED: METOPROLOL TARTRATE PF/INJ 5 MG/5 ML SDV IV ONE (05:00)
[2016-07-03 07:27] LABS: ABSOLUTE EOSINOPHILS # (AUTO) 0.1 10^3/uL (0.0-0.6); ABSOLUTE LYMPHOCYTES (AUTO) 1.1 10^3/uL (0.5-4.7); ABSOLUTE MONOCYTES (AUTO) 0.3 10^3/uL (0.1-1.4); ABSOLUTE NEUT (AUTO) 3.2 10^3/uL (1.7-8.2); BASOPHILS % (AUTO) 0.9 % (0-2); EOSINOPHILS % (AUTO) 2.8 % (0-6); HEMATOCRIT 33.1 % (36.0-47.0); HEMOGLOBIN 10.6 g/dL (12.0-15.5); HGB HCT DIFFERENCE -1.3; LYMPHOCYTES % (AUTO) 22.4 % (13-45); MEAN CORPUSCULAR HEMOGLOBIN 23.9 pg (27.0-33.4); MEAN CORPUSCULAR HGB CONC 32.1 g/dL (32.0-36.0); MEAN CORPUSCULAR VOLUME 74 fl (80-97); RED BLOOD COUNT 4.45 10^6/uL (3.72-5.28); RED CELL DISTRIBUTION WIDTH 15.6 % (11.5-14.0); SEGMENTED NEUTROPHILS % (AUTO) 66.9 % (42-78); WHITE BLOOD COUNT 4.7 10^3/uL (4.0-10.5)
[2016-07-03 07:42] LABS: ANION GAP 10 (5-19); BLOOD UREA NITROGEN 29 mg/dL (7-20); CARBON DIOXIDE 25 mmol/L (22-30); CHLORIDE 103 mmol/L (98-107); CREATININE RESULT 1.56 mg/dL (0.52-1.25); GLUCOSE 87 mg/dL (75-110); POTASSIUM 4.7 mmol/L (3.6-5.0); SODIUM 138.2 mmol/L (137-145); TOTAL PROTEIN 5.5 g/dL (6.3-8.2)
[2016-07-03 07:43] LABS: ALANINE AMINOTRANSFERASE 104 U/L (9-52); ALKALINE PHOSPHATASE 127 U/L (38-126); ASPARTATE AMINO TRANSFERASE 105 U/L (14-36); BILIRUBIN,DIRECT 0.3 mg/dL (0.0-0.4); BILIRUBIN,TOTAL 0.5 mg/dL (0.2-1.3); CALCIUM 8.4 mg/dL (8.4-10.2)
[2016-07-03] MEDS: LEVOTHYROXINE SODIUM 0.05 MG TABLET PO SCH (08:12)
[2016-07-03] MEDS: MEMANTINE HCL 10 MG TABLET PO SCH (10:23)
[2016-07-03] MEDS: DONEPEZIL HCL 5 MG TABLET PO SCH (10:23)
[2016-07-03] MEDS: AMIODARONE HCL 200 MG TABLET PO SCH (10:23)
[2016-07-03] MEDS: ISOSORBIDE MONONITRATE 30 MG TAB.ER.24H PO SCH (10:24)
[2016-07-03] MEDS: METOPROLOL SUCCINATE 50 MG TAB.SR.24H PO SCH (10:24)
[2016-07-03] MEDS: APIXABAN 2.5 MG TABLET PO SCH (10:25)
[2016-07-03 11:08] VITALS: BP 128/63
== END 2016-07-03 13:11 | DRG 602 ==
LOC: ER 00:54 → UNDOADMOB 06:04 → EH 06:04 → 3S 13:50 → OBSVTOIN 06-30 13:52
PROVIDERS: ADMIT Internal Medicine; ATTEND Internal Medicine
DX: L03.115 Cellulitis of right lower limb (principal); G93.41 Metabolic encephalopathy; Z68.41 Body mass index [BMI] 40.0-44.9, adult; I13.0 Hypertensive heart and chronic kidney disease with heart failure and stage 1 through stage 4 chronic kidney disease, or unspecified chronic kidney disease; I50.32 Chronic diastolic (congestive) heart failure; G47.33 Obstructive sleep apnea (adult) (pediatric); N18.3 Chronic kidney disease, stage 3 (moderate); I48.2 Chronic atrial fibrillation; G31.84 Mild cognitive impairment of uncertain or unknown etiology; M19.90 Unspecified osteoarthritis, unspecified site; R74.8 Abnormal levels of other serum enzymes; E66.9 Obesity, unspecified; R32 Unspecified urinary incontinence; Z79.899 Other long term (current) drug therapy; Z87.891 Personal history of nicotine dependence; Z88.0 Allergy status to penicillin; Z88.1 Allergy status to other antibiotic agents
CPT/HCPCS: 36415; 51701; 70551; 71010; 80048; 80053; 80076; 80307; 81001; 82550; 82553; 82803; 83036; 83605; 83690; 83880; 84439; 84443; 84484; 85025; 85610; 85730; 87040; 87086; 93005; 93010; 96360; 99285; G0378; G8978-GP; G8979-GP; J0133; J1644; J2020; J3490; J7030; J7050